=== PATIENT | female | born 1945 | race Caucasian/White ===

== ENCOUNTER 2019-05-25 10:15 | Emergency (ER) | payer MEDICARE ==
--- NOTE | 2019-05-25 10:54 | ERPHSYRPT ---
- History of Present Illness Time Seen by Provider: 05/25/19 10:39 Source: patient Exam Limitations: no limitations Patient Subjective Stated Complaint: Pt was looking at a sign and there was a drop in the sidewalk and she tripped and fell falling on her face, nose is bruised and speckled with little dots of blood, 1 cm laceration between the eyee , abrasions to right elbow, right wrist, right dorsal side of hand, left anterior hand, bruising to right wrist on anterior and posterior side Triage Nursing Assessment: Pt walked into the ER, vitals wnl, pulses normal, states that she feels like something is "catching" in her right chest, denies much pain, skin normal and dry, denies losing consciousness, slight headache Physician History: 74-year-old white female with history of hypercholesterolemia, high blood pressure, sleep apnea, diabetes, osteopenia Patient arrives with complaint of an accidental fall she states she was looking at a sinus rhythm over uneven sidewalk . She states she landed on her face she did not have loss of consciousness she has pain and swelling to her nose she has a small laceration over the glabella he says some abrasions to her wrists and she has some mild ecchymosis as to the right anterior wrist. She states she has a "catch" in her right anterior chest and has some pain with moving and breathing. She has not nausea no vomiting she is not short of breath she denies any pain in her lower extremities she has no abdominal pain. Past medical history includes hypercholesterolemia, high blood pressure, sleep apnea, diabetes type 2, osteopenia Past surgical history includes cholecystectomy hysterectomy and bariatric surgery Timing/Duration: today (at approximately 10:00) Severity: moderate Modifying Factors: Improves With: nothing Associated Symptoms: nausea, vomiting, abdominal pain, chest pain (pain anterior right chest with breathing), other (aabrasions to bilateral forearms ecchymosis right anterior wrist, small superficial laceration right glabella), No shortness of breath, No heartburn, No diaphoresis, No cough, No chills, No fever, No headaches, No loss of appetite, No malaise, No rash, No syncope, No seizure, No weakness Allergies/Adverse Reactions: benazepril Allergy (Mild, Verified 05/25/19 10:33) coughing Home Medications: Calcium Carb/Vit D3/Minerals [Calcium 600 + D Tablet] 5 tab PO DAILY 06/15/12 [ History] Lisinopril 20 mg PO DAILY 06/15/12 [History] Metoprolol Tartrate 50 mg PO BID 06/15/12 [History] Simvastatin 40 mg [Zocor 40 mg] 40 mg PO HS 11/11/14 [History] Biotin [Jourdan Biotin] 10,000 mcg PO DAILY 11/12/14 [History] Cholecalciferol (Vitamin D3) [Vitamin D3] 2,000 unit PO DAILY 11/12/14 [History] Thiamine HCl [Vitamin B-1] 250 mg PO WEEKLY 11/12/14 [History] Aspirin [Aspir-Low] 1 tab PO DAILY 10/16/16 [History] Multivit, Iron, Min #3, FA [Central Prasad Tablet] 2 tab PO DAILY 10/16/16 [ History] Omeprazole 20 mg PO DAILY 05/25/19 [History] Hx Tetanus, Diphtheria Vaccination/Date Given: No Hx Influenza Vaccination/Date Given: Yes (2012) Hx Pneumococcal Vaccination/Date Given: Yes - Review of Systems Constitutional: No Fever, No Chills Eyes: No Symptoms Ears, Nose, & Throat: Nose Pain, Other (fell and hit her nose), No Ear Pain, No Ear Discharge, No Hearing Changes, No Tinnitus, No Nose Congestion, No Nose Discharge, No Sinus Drainage, No Epistaxis, No Mouth Pain, No Mouth Swelling, No Loose Teeth, No Throat Pain, No Throat Swelling, No Hoarse, No Painful Swallowing, No Snoring, No Stridor Respiratory: No Cough, No Dyspnea Cardiac: Chest Pain (pain right anterior chest with moving and breathing), No Edema, No Syncope Abdominal/Gastrointestinal: No Abdominal Pain, No Nausea, No Vomiting, No Diarrhea Genitourinary Symptoms: No Dysuria Musculoskeletal: Other (contusion bilateral wrists. Ecchymosis right anterior wrist) Skin: Other (small 1 cm superficial laceration right glabella) Neurological: No Dizziness, No Focal Weakness, No Headache, No Sensory Changes Psychological: No Symptoms Endocrine: No Symptoms All Other Systems: Reviewed and Negative - Past Medical History Pertinent Past Medical History: Yes Neurological History: No Pertinent History ENT History: No Pertinent History Cardiac History: High Cholesterol, Hypertension Respiratory History: Sleep Apnea Endocrine Medical History: No Pertinent History Musculoskeletal History: No Pertinent History, Osteoporosis GI Medical History: No Pertinent History History: No Pertinent History Psycho-Social History: No Pertinent History Female Reproductive Disorders: No Pertinent History Other Medical History: CPAP AND NIGHT 20 YRSAGO ROTATER CUFF PROBLEMS -TOLD THEN SHE NEEDED SURGERY BUT HASN'T HAD TREATMENT - Past Surgical History Past Surgical History: Yes Neuro Surgical History: No Pertinent History Cardiac: No Pertinent History Respiratory: No Pertinent History Gastrointestinal: Cholecystectomy Genitourinary: No Pertinent History Musculoskeletal: No Pertinent History Female Surgical History: Hysterectomy Other Surgical History: bariatric surgery at [facility] - Social History Smoking Status: Never smoker Exposure to second hand smoke: No Drug Use: none Patient Lives Alone: No - Female History Hx Now: No - Nursing Vital Signs Nursing Vital Signs: Initial Vital Signs Temperature 97.9 F 05/25/19 10:21 Pulse Rate 64 05/25/19 10:21 Blood Pressure 132/116 05/25/19 10:21 O2 Sat by Pulse Oximetry 98 05/25/19 10:21 Pain Scale Pain Intensity 3 - Physical Exam General Appearance: mild distress, alert, other (well-developed well-nourished white female alert oriented x3 small 1 cm superficial laceration overlying glabella) Eye Exam: PERRL/EOMI, eyes nml inspection, other (fundi unremarkable) Ears, Nose, Throat Exam: TMs normal, pharynx normal, moist mucous membranes, other (ecchymosis and edema overlying proximal nose, no septal hematoma), No TM abnormal (R), No TM abnormal (L), No pharyngeal erythema, No tonsillar exudate Neck Exam: normal inspection, non-tender, supple, full range of motion Respiratory Exam: normal breath sounds, chest tenderness (pain right anterior chest with movement and deep breathing), lungs clear, No respiratory distress Cardiovascular Exam: regular rate/rhythm, normal heart sounds, normal peripheral pulses, capillary refill <2 sec Gastrointestinal/Abdomen Exam: soft, normal bowel sounds, No tenderness, No mass Back Exam: normal inspection, normal range of motion, No CVA tenderness, No vertebral tenderness Extremity Exam: normal range of motion, pelvis stable, other (multiple abrasions bilateral wrist/forearms, ecchymosis right anterior forearm, full range of motion all extremities pulses equal and symmetrical upper and lower two over four) Neurologic Exam: alert, oriented x 3, cooperative, production sampler II-XII nml as tested, normal mood/affect, nml cerebellar function, nml station & gait, sensation nml, No motor deficits Skin Exam: other (multiple abrasions left forearm,ecchymosis right forearm, 1 cm superficial laceration overlying glabella) SpO2 Interpretation: normal (98%) SpO2: 98 - Course Nursing assessment & vital signs reviewed: Yes EKG Interpreted by Me: RATE (54 bpm), Sinus Daryn, NORMAL AXIS, Other (EKG: Sinus bradycardia, 54 beats per minute, normal axis, no acute ST or T wave changes, compared to October 27, 2018.) - Radiology Exams Chest X-ray Interpretation: Discussed w/ radiologist (chest x-ray: Impression 1. No acute cardiopulmonary disease is seen. The findings are unchanged from November 11, 2014. The lung carter are mmildly hyperinflated.) C-Spine X-ray Interpretation: Discussed w/ radiologist (x-ray cervical spine: Impression 1. No acute cervical spine fracture, AP subluxation, or prevertebral soft tissue swelling is seen. 2. Advanced multilevel degenerative disc disease and degenerative joint disease are seen at C4-C5, C5- C6, and C6-C7) - CT Exams Maxillofacial Bones CT Interpretation: Discussed w/radiologist (CT maxillofacial bones colon impression 1. A couple of mild fracture deformities within the left aspect of the nasal bones. Which displayed and altered contour on the thin section axial images, particularly on axial image #36 and #37.2. No other evidence of a facial bone fracture or paranasal sinus air-fluid levels are seen. 3. Deviation of the nasal septum towards the right and minimal mucosal thickening at the medial margin of the right maxillary sinus on axial image #34 and within the anterior and mid ethmoid air cells bilaterally) Ordered Tests: Active Orders 24 hr Category Date Time Status [employer] Technician STAT Care 05/25/19 10:47 Active EKG-ER Only STAT Care 05/25/19 10:46 Active IV Insertion STAT Care 05/25/19 10:46 Active Pulse Oximetry (ED) STAT Care 05/25/19 10:46 Active Wound Care STAT Care 05/25/19 10:56 Active CERVICAL SPINE (2 OR 3 VIEW) Stat Exams 05/25/19 10:47 Completed CHEST 2 VIEWS (PA AND LAT) Stat Exams 05/25/19 10:46 Completed FACIAL BONES WO CONTRAST [CT] Stat Exams 05/25/19 10:48 Completed CBC W DIFF Stat Lab 05/25/19 11:01 Completed CMP Stat Lab 05/25/19 11:01 Completed TROPONIN Q3H Lab 05/25/19 11:01 Completed TROPONIN Q3H Lab 05/25/19 14:10 Completed TROPONIN Q3H Lab 05/25/19 17:00 Ordered TROPONIN Q3H Lab 05/25/19 20:00 Ordered TROPONIN Q3H Lab 05/25/19 23:00 Ordered Medication Summary Discontinued Medications Generic Name Dose Route Start Last Admin Trade Name Freq PRN Reason Stop Dose Admin Bacitracin Zinc 0.9 gm 05/25/19 10:56 05/25/19 11:15 Baciguent Packet TP 05/25/19 10:57 0.9 gm STAT ONE Administration Lab/Rad Data: Laboratory Result Diagrams 05/25/19 11:01 05/25/19 11:01 Laboratory Results 05/25/19 05/25/19 05/25/19 Range/Units 14:10 11:01 11:01 WBC (4.0-10.5) K/mm3 RBC (4.1-5.4) M/mm3 Hgb (12.0-16.0) gm/dl Hct (35-47) % MCV (78-100) fl MCH (26-32) pg MCHC (32-36) g/dl RDW (11.5-14.0) % Plt Count (150-450) K/mm3 MPV (6-9.5) fl Gran % (36.0-66.0) % Eos # (Auto) (0-0.5) Absolute Lymphs (auto) (1.0-4.6) Absolute Monos (auto) (0.0-1.3) Lymphocytes % (24.0-44.0) % Monocytes % (0.0-12.0) % Eosinophils % (0.00-5.0) % Basophils % (0.0-0.4) % Absolute Granulocytes (1.4-6.9) Basophils # (0-0.4) Sodium 140 (137-145) mmol/L Potassium 4.5 (3.5-5.1) mmol/L Chloride 109 H (98-107) mmol/L Carbon Dioxide 25 (22-30) mmol/L Anion Gap 10.4 (5-15) MEQ/L BUN 18 H (7-17) mg/dL Creatinine 0.94 (0.52-1.04) mg/dL Estimated GFR > 60.0 ML/MIN Glucose 88 (74-106) mg/dL Calcium 9.1 (8.4-10.2) mg/dL Total Bilirubin 0.50 (0.2-1.3) mg/dL AST 54 H (14-36) U/L ALT 32 (0-35) U/L Alkaline Phosphatase 130 H (38-126) U/L Troponin I < 0.012 < 0.012 (0.000-0.034) ng/mL Serum Total Protein 6.5 (6.3-8.2) g/dL Albumin 3.6 (3.5-5.0) g/dL 05/25/19 Range/Units 11:01 WBC 4.2 (4.0-10.5) K/mm3 RBC 3.61 L (4.1-5.4) M/mm3 Hgb 11.1 L (12.0-16.0) gm/dl Hct 33.9 L (35-47) % MCV 93.9 (78-100) fl MCH 30.7 (26-32) pg MCHC 32.7 (32-36) g/dl RDW 13.1 (11.5-14.0) % Plt Count 174 (150-450) K/mm3 MPV 11.3 H (6-9.5) fl Gran % 59.1 (36.0-66.0) % Eos # (Auto) 0.26 (0-0.5) Absolute Lymphs (auto) 1.06 (1.0-4.6) Absolute Monos (auto) 0.38 (0.0-1.3) Lymphocytes % 25.2 (24.0-44.0) % Monocytes % 9.0 (0.0-12.0) % Eosinophils % 6.2 H (0.00-5.0) % Basophils % 0.5 (0.0-0.4) % Absolute Granulocytes 2.48 (1.4-6.9) Basophils # 0.02 (0-0.4) Sodium (137-145) mmol/L Potassium (3.5-5.1) mmol/L Chloride (98-107) mmol/L Carbon Dioxide (22-30) mmol/L Anion Gap (5-15) MEQ/L BUN (7-17) mg/dL Creatinine (0.52-1.04) mg/dL Estimated GFR ML/MIN Glucose (74-106) mg/dL Calcium (8.4-10.2) mg/dL Total Bilirubin (0.2-1.3) mg/dL AST (14-36) U/L ALT (0-35) U/L Alkaline Phosphatase (38-126) U/L Troponin I (0.000-0.034) ng/mL Serum Total Protein (6.3-8.2) g/dL Albumin (3.5-5.0) g/dL - Progress Progress: improved Progress Note: 05/25/19 13:46 Patient is stable in no acute distress. Waiting for chest x-ray results C-spine results and maxilla facial bone CT results. 05/25/19 15:04 Patient's repeat troponin within normal limits Patient's EKG sinus bradycardia 54 beats per minute normal axis no acute ST or T wave changes are noted patient's Facial bones remarkable for mild fracture deformities within the last aspect of the nasal bones are no other evidence of facial bone fracture or paranasal sinus air fluid level seen there was some deviation of the nasal septum towards the right and minimal mucosal thickening at the medial margin of the right maxillary sinus on image #34 and within the anterior and mid S. voice air cells bilaterally x-ray of the C-spine no acute cervical spine fractures, AP subluxation or prevertebral soft tissue swelling was seen there was advanced multilevel degenerative disc disease and degenerative joint disease seen at C4- C5-C5-C6, and C6-C7 chest x-ray no acute cardiopulmonary disease was seen. Patient's laceration to the bridge of her nose did not require sutures it was cleansed and bacitracin was applied Patient's CBC white blood cell 4.2 hemoglobin 11.1 hematocrit 33.9 platelets 174 Chemistry sodium 140 potassium 4. 5, chloride 109 bicarbonate 25 BUN 18 creatinine 0.94 glucose 88 Patient was feeling well she is stable vitals are stable She refused pain medications and does not want any Will discharge patient patient to followup with Dr. Tracy She does not want to do so until Thursday as she has a in the family. - Departure Departure Disposition: Home Clinical Impression: Superficial laceration nose, Non-cardiac chest pain Accidental fall Qualifiers: Encounter type: initial encounter Qualified Code(s): W19.XXXA - Unspecified fall, initial encounter Facial contusion Qualifiers: Encounter type: initial encounter Qualified Code(s): S00.83XA - Contusion of other part of head, initial encounter Nasal bone fracture Qualifiers: Encounter type: initial encounter Fracture type: closed Qualified Code(s): S02.2XXA - Fracture of nasal bones, initial encounter for closed fracture Contusion of chest Qualifiers: Encounter type: initial encounter Laterality: right Qualified Code(s): S20.211A - Contusion of right front wall of thorax, initial encounter Contusion Qualifiers: Encounter type: initial encounter Contusion area: forearm Laterality: unspecified laterality Qualified Code(s): S50.10XA - Contusion of unspecified forearm, initial encounter Abrasion forearm Qualifiers: Encounter type: initial encounter Laterality: unspecified laterality Qualified Code(s): S50.819A - Abrasion of unspecified forearm, initial encounter Condition: Fair Critical Care Time: No Referrals: CORNELIUS GONG MD [Primary Care Provider] - Additional Instructions: Return home. Cold packs to nose 24-48 hours. Followup with your family doctor or your nose and throat physician call for appointment. Tylenol every 4 hours as needed for pain. Bacitracin to abrasions until healed. Return for acute distress or for severe symptoms.
[2019-05-25] MEDS ORDERED: BACIGUENT PACKET TP ONE (10:56)
[2019-05-25 11:08] LABS: BASOPHIL % 0.5 % (0.0-0.4); Basophil (Absolute #) 0.02 (0-0.4); Eosinophil % 6.2 % (0.00-5.0); Eosinophil (Absolute #) 0.26 (0-0.5); Granulocyte Absolute (ANC) 2.48 (1.4-6.9); Granulocytes % 59.1 % (36.0-66.0); Hematocrit 33.9 % (35-47); Hemoglobin 11.1 gm/dl (12.0-16.0); Lymphocyte (Absolute #) 1.06 (1.0-4.6); Lymphocytes % 25.2 % (24.0-44.0); Mean Cell Volume 93.9 fl (78-100); Mean Corpuscular Hemoglobin 30.7 pg (26-32); Mean Corpuscular Hgb Concent. 32.7 g/dl (32-36); Mean Platelet Volume 11.3 fl (6-9.5); Monocyte (Absolute #) 0.38 (0.0-1.3); Platelet Count 174 K/mm3 (150-450); Red Blood Count 3.61 M/mm3 (4.1-5.4); Red Cell Distribution Width 13.1 % (11.5-14.0); White Blood Count 4.2 K/mm3 (4.0-10.5)
[2019-05-25 11:16] LABS: ALBUMIN 3.6 g/dL (3.5-5.0); ALKALINE PHOSPHATASE 130 U/L (38-126); ANION GAP 10.4 MEQ/L (5-15); BLOOD UREA NITROGEN 18 mg/dL (7-17); CHLORIDE 109 mmol/L (98-107); Calcium 9.1 mg/dL (8.4-10.2); Carbon Dioxide 25 mmol/L (22-30); Creatinine 1 0.94 mg/dL (0.52-1.04); Glucose 88 mg/dL (74-106); Potassium 4.5 mmol/L (3.5-5.1); SGOT/AST 54 U/L (14-36); SGPT/ALT 32 U/L (0-35); SODIUM 140 mmol/L (137-145); Total Protein 6.5 g/dL (6.3-8.2)
--- NOTE | 2019-05-25 13:56 | XRAY ---
Exam: Two-view chest from 05/25/2019. Comparison: AP portable chest film from 11/11/2014. Indication: 74-year-old female, pain with breathing/respiration and movement. Findings: Upright PA and lateral chest films were obtained. The heart size and contour are normal. I see no evidence of mediastinal widening or shift. The joe and mediastinal structures appear unremarkable. There is mild hyperinflation of the lungs. No air space infiltrates, vascular congestion, pneumothorax, or pleural effusion is seen. Moderate vertebral endplate spurring is seen within the mid and lower thoracic spine. Moderate degenerative changes are seen within both shoulder girdles. There is some elevation of each humeral head with respect to the glenoid, left greater than right. This is probably due to chronic rotator cuff disease. I see no compression fracture deformity within the visualized thoracolumbar spine. There is some mild thoracic interspace narrowing within the upper thoracic spine indicating degenerative change. Impression: 1. No acute cardiopulmonary disease is seen. The findings are unchanged from 11/11/2014. The lung carter are mildly hyperinflated.
[2019-05-25 13:58] VITALS: PULSE 54
--- NOTE | 2019-05-25 14:02 | XRAY ---
Exam: 3 view cervical spine series from 05/25/2019. Comparison: None. Indication: 74-year-old female who fell striking face. Findings: AP, lateral, and 2 open-mouth odontoid views were obtained. I see no acute cervical spine fracture, AP subluxation, or prevertebral soft tissue swelling. There is moderate to marked multilevel degenerative disc disease from C4-C5 through C6-C7 manifested by significant vertebral interspace narrowing, moderate anterior vertebral endplate spurring, and mild posterior vertebral endplate spurring. The C2-C3 and C3-C4 interspace heights are fairly well-maintained. Mild hypertrophic degenerative change of the C7-T1 facet joints is seen. The C1-C2 relationship appears unremarkable. No cervical ribs are seen. I note some mild convexity of the upper cervical spine toward the right on the AP image. Moderate osteoarthritic changes are seen affecting the C4-C5, C5-C6, and C6-C7 uncovertebral joints bilaterally. The bones are demineralized. A hearing aid device overlies the right ear. Impression: 1. No acute cervical spine fracture, AP subluxation, or prevertebral soft tissue swelling is seen. 2. Advanced multilevel degenerative disc disease and degenerative joint disease are seen at C4-C5, C5-C6, and C6-C7.
--- NOTE | 2019-05-25 14:19 | XRAY ---
Exam: CT examination of the facial bones without IV contrast from 05/25/2019. CTDI: 59.47 Comparison: None. Indication: 74-year-old female fell striking face. Technique: Non-IV contrast axial images were obtained through the facial bones. Reconstructed coronal and sagittal images were created and reviewed. Findings: There is some deformity of the left aspect of the nasal bones with at least a couple radiolucent defects suggestive of fractures on this side of the nasal bones. I do not see a nasal bone fracture on the right side. There is mild to moderate deviation of the nasal septum toward the right. No other facial bone fracture or paranasal sinus air-fluid level is seen. There is some minimal mucosal thickening noted along the medial margin of the right maxillary sinus on axial image #34. I also see some minimal scattered mucosal thickening within the anterior and mid ethmoid air cells bilaterally. The remainder of the paranasal sinuses appears clear. There is a minimal damián bullosa within the mid left middle nasal turbinate. The infundibula of the ostiomeatal complexes appear open bilaterally on the coronal images. The orbital floors appear intact. The remainder of the orbital contents appears unremarkable. The zygomatic arches appear unremarkable. No gross abnormality of either TMJ is seen. Impression: 1. I believe there are a couple mild fracture deformities within the left aspect of the nasal bones, which display an altered contour on the thin section axial images, particularly on axial image #36 and #37. 2. No other evidence of facial bone fracture or paranasal sinus air-fluid levels are seen. 3. Deviation of nasal septum toward the right and minimal mucosal thickening at the medial margin of the right maxillary sinus on axial image #34 and within the anterior and mid ethmoid air cells bilaterally.
[2019-05-25 14:20] VITALS: O2SAT 98
[2019-05-25 15:21] VITALS: BP 157/69
== END 2019-05-25 15:31 | disposition home or self-care (01) ==
LOC: ED 10:15
DX: S01.21XA Laceration without foreign body of nose, initial encounter (principal); S00.33XA Contusion of nose, initial encounter; W01.198A Fall on same level from slipping, tripping and stumbling with subsequent striking against other object, initial encounter; Y92.480 Sidewalk as the place of occurrence of the external cause; S50.311A Abrasion of right elbow, initial encounter; S60.811A Abrasion of right wrist, initial encounter; S60.511A Abrasion of right hand, initial encounter; R51 Headache; R07.89 Other chest pain; S02.2XXA Fracture of nasal bones, initial encounter for closed fracture; S20.211A Contusion of right front wall of thorax, initial encounter; S50.10XA Contusion of unspecified forearm, initial encounter; S50.819A Abrasion of unspecified forearm, initial encounter; E78.00 Pure hypercholesterolemia, unspecified; G47.30 Sleep apnea, unspecified; M85.80 Other specified disorders of bone density and structure, unspecified site; E11.9 Type 2 diabetes mellitus without complications; I10 Essential (primary) hypertension; Z79.899 Other long term (current) drug therapy
CPT/HCPCS: 36000; 36415; 70486; 71046; 72040; 80053; 84484; 85025; 93005; 93041; 94760; 99284; A9270-GY

== ENCOUNTER 2022-12-06 10:23 | Emergency (ER) | payer MEDICARE ==
[2022-12-06] MEDS ORDERED: NORCO 5/325 MG ONE ×2 (10:38→11:42)
[2022-12-06] MEDS ORDERED: NORCO 5/325 MG PO ONE (10:38)
--- NOTE | 2022-12-06 11:45 | ERPHSYRPT ---
- History of Present Illness Time Seen by Provider: 12/06/22 10:42 Source: patient, family Patient Subjective Stated Complaint: pt here for a fall today, she triped on concrete and fell landing on chest and left knee, no [email or web address].co pain to left knee and chest area Triage Nursing Assessment: pt arrived per pov helped out of car into with assist of one, pt holding on to chest and moaning, pt alert, resp easy, skin w/d/p, edema not lower legs that is normal for her, has abrasion and slight bruising,and abrsion 5th left digit Physician History: 77-year-old female presented in the ER after she tripped while getting into a restaurant leading to fall hitting her anterior chest and left knee. Was able to get up and ambulate. Did not hit her head, no loss of consciousness. No difficulty breathing. Mom denies any back pain. Patient is ambulating in the ER with some discomfort in the left knee. No injury anywhere else. Occurred: just prior to arrival Reason for Fall: tripped Injuries/Pain Location: chest, lower extremity Loss of Consciousness: no loss of consciousness Quality: sharpness Severity of Pain-Max: moderate Severity of Pain-Current: moderate Modifying Factors: Improves With: immobilization. Worsens With: movement Associated Symptoms (Fall): chest pain, extremity injury, No back pain, No confusion, No headache, No shortness of breath, No slurred speech, No trouble walking, No vision changes Allergies/Adverse Reactions: benazepril Allergy (Mild, Verified 12/06/22 10:28) coughing Home Medications: Calcium Carb/Vit D3/Minerals [Calcium 600 + D Tablet] 5 tab PO DAILY 06/15/12 [History] Lisinopril 20 mg PO DAILY 06/15/12 [History] Metoprolol Tartrate 50 mg PO BID 06/15/12 [History] Simvastatin 40 mg [Zocor 40 mg] 40 mg PO HS 11/11/14 [History] Biotin [Jourdan Biotin] 5,000 mcg PO DAILY 11/12/14 [History] Cholecalciferol (Vitamin D3) [Vitamin D3] 2,000 unit PO DAILY 11/12/14 [History] Thiamine HCl [Vitamin B-1] 250 mg PO WEEKLY 11/12/14 [History] Multivit, Iron, Min #3, FA [Central Prasad Tablet] 2 tab PO DAILY 10/16/16 [History] Omeprazole 20 mg PO DAILY 05/25/19 [History] Hx Tetanus, Diphtheria Vaccination/Date Given: No Hx Influenza Vaccination/Date Given: Yes Hx Pneumococcal Vaccination/Date Given: Yes Immunizations Up to Date: No Travel Risk - International Travel Have you traveled outside of the country in past 3 weeks: No - Coronavirus Screening Are you exhibiting any of the following symptoms?: No Close contact with a COVID-19 positive Pt in past 14-21 Days: No - Vaccine Status Have you recieved a Covid-19 vaccination: Yes Superintendent Pressure: Unknown - Vaccination Dates Date of 2cond Vaccination (if applicable): 2020 Dates if Unknown: ? - Review of Systems Constitutional: No Symptoms Eyes: No Symptoms Ears, Nose, & Throat: No Symptoms Respiratory: No Symptoms Cardiac: Chest Pain Abdominal/Gastrointestinal: No Symptoms Genitourinary Symptoms: No Symptoms Musculoskeletal: Injury Neurological: No Symptoms Psychological: No Symptoms Endocrine: No Symptoms Hematologic/Lymphatic: No Symptoms - Past Medical History Pertinent Past Medical History: Yes Neurological History: No Pertinent History ENT History: No Pertinent History Cardiac History: Hypertension Respiratory History: No Pertinent History Endocrine Medical History: No Pertinent History Musculoskeletal History: No Pertinent History GI Medical History: No Pertinent History History: No Pertinent History Psycho-Social History: No Pertinent History Female Reproductive Disorders: No Pertinent History Other Medical History: COLON CANCER, DID NOT REQUIRE A COLOSTOMY. SHE IS IN REMISSION. GASTRIC BYPASS. - Past Surgical History Past Surgical History: Yes Neuro Surgical History: No Pertinent History Cardiac: No Pertinent History Respiratory: No Pertinent History Gastrointestinal: Cholecystectomy Genitourinary: No Pertinent History Musculoskeletal: No Pertinent History Female Surgical History: Hysterectomy Other Surgical History: bariatric surgery at [facility] - Social History Smoking Status: Never smoker Exposure to second hand smoke: No Drug Use: none Patient Lives Alone: No - Nursing Vital Signs Nursing Vital Signs: Initial Vital Signs Temperature 97.6 F 12/06/22 10:29 Pulse Rate 58 L 12/06/22 10:29 Respiratory Rate 22 12/06/22 10:29 Blood Pressure 175/83 12/06/22 10:29 O2 Sat by Pulse Oximetry 97 12/06/22 10:29 Pain Scale Pain Intensity 10 - [place] Score Best Eye Response ([place]): (4) open spontaneously Best Verbal Response ([place]): (5) oriented Best Motor Response ([place]): (6) obeys commands [place] Total: 15 - Physical Exam General Appearance: no apparent distress, alert Head Injury: no evidence of injury Eye Exam: PERRL/EOMI, eyes nml inspection ENT Exam: airway nml, No evidence of ENT injury, No dental injury Neck Exam: supple, trachea midline, full range of motion, normal alignment, normal inspection Respiratory/Chest Exam: chest tenderness (Mild anterior left chest tenderness. No crepitus.), normal breath sounds, No respiratory distress Cardiovascular Exam: normal heart sounds, edema, bradycardia Gastrointestinal Exam: soft, normal bowel sounds, No tenderness Back Exam: normal inspection, normal range of motion, No CVA tenderness Extremity Exam: normal inspection, normal range of motion, capillary refill <3 sec, pain with movement (Left knee), tenderness (Mild tenderness left knee. No crepitus. No effusion. Intact range of motion.) Neurologic Exam: alert, oriented x 3, cooperative, solution design and analysis manager II-XII nml as tested, normal mood/affect, nml cerebellar function, nml station & gait, sensation nml, No motor deficits Skin Exam: normal color SpO2 Interpretation: normal SpO2: 97 O2 Delivery: Room Air Ordered Tests: Active Orders 24 hr Category Date Time Status Kevin Bandage Application -[facility] STAT Care 12/06/22 11:53 Completed CHEST 2 VIEWS (PA AND LAT) Stat Exams 12/06/22 10:39 Taken KNEE (3 VIEWS) Stat Exams 12/06/22 10:39 Taken Medication Summary Discontinued Medications Generic Name Dose Route Start Last Admin Trade Name Carrington PRN Reason Stop Dose Admin Hydrocodone Bitart/Acetaminophen Confirm 12/06/22 10:38 Hydrocodone/Apap 5/325 1 Tab Tablet Administered 12/06/22 10:39 Dose 1 tab .ROUTE .STK-MED ONE Hydrocodone Bitart/Acetaminophen 1 tab 12/06/22 10:38 12/06/22 11:43 Hydrocodone/Apap 5/325 1 Tab Tablet PO 12/06/22 10:39 1 tab STAT ONE Administration Hydrocodone Bitart/Acetaminophen Confirm 12/06/22 11:42 Hydrocodone/Apap 5/325 1 Tab Tablet Administered 12/06/22 11:43 Dose 1 tab .ROUTE .STK-MED ONE - Progress Progress: improved, pain not gone completely, re-examined Progress Note: 12/06/22 11:42 77-year-old is evaluated in the ER for mechanical fall. Patient was getting into a restaurant, tripped, hit her chest and left knee with normal head injury, loss of consciousness. Denies any palpitation, dizziness, shortness of breath before or after the fall. Patient does complain of some chest wall discomfort and some knee pain although patient is ambulating fine. Lungs bilateral clear to auscultation. She has minimal tenderness anterior chest wall with no crepitus. No obvious bruising noticed. EKG showed sinus bradycardia with no acute ischemic changes. She is given [place] for symptomatic relief. X-rays chest and knees reviewed by me negative for any acute trauma related findings, official reports are pending. Recommended deep breathing exercises, pain medic ations, Kevin wrap left knee and outpatient follow-up. Discussed signs symptoms of worsening needing return to ER which patient/son seem understanding. Counseled pt/family regarding: diagnosis, need for follow-up, rad results - Departure Departure Disposition: Home Clinical Impression: Chest wall contusion, Accidental fall, Contusion, knee Condition: Stable Critical Care Time: No Referrals: ADORE LUCERO MD [Primary Care Provider] - Follow up/PCP as directed (In 2 days for reevaluation) Instructions: Contusion (DC), Preventing Falls in Older Adults Additional Instructions: Take pain medications only as needed. Intermittent ice application. Keep leg elevated. Use compression stocking. Use cane/walker for ambulation to avoid another fall while being on pain medications. Follow-up with orthopedics/primary care for reevaluation early next week. Return to ER for worsening chest pain, difficulty breathing, swelling around knee/ambulation difficulty etc. Prescriptions: Hydrocodone/Acetaminophen [Hydrocodone-Acetamin 5-325 mg] 1 tab PO Q6HPRN PRN 3 Days #12 tablet MDD 4 PRN Reason: Pain
[2022-12-06 11:49] VITALS: BP 119/70; PULSE 70
[2022-12-06 12:09] VITALS: O2SAT 97
--- NOTE | 2022-12-06 19:36 | XRAY ---
Indication: Pain following fall. Comparison: None 3 view left knee demonstrates osteopenia, mild/moderate tricompartmental degenerative changes greatest medial compartment, and tiny spurring tibial tuberosity. No other bony, articular, or soft tissue abnormalities.
--- NOTE | 2022-12-06 19:36 | XRAY ---
Indication: Chest pain. Comparison: May 25, 2019 PA/lateral chest remains hyperinflated and clear. Heart not enlarged again with tiny bilateral hilar calcified nodes. Bony thorax intact again with osteopenia and moderate degenerative changes. Impression: Continued nonacute hyperinflated chest with chronic features.
== END 2022-12-06 11:59 | disposition home or self-care (01) ==
LOC: ED 10:23
DX: S80.02XA Contusion of left knee, initial encounter (principal); S20.214A Contusion of middle front wall of thorax, initial encounter; W01.10XA Fall on same level from slipping, tripping and stumbling with subsequent striking against unspecified object, initial encounter; Y92.511 Restaurant or cafe as the place of occurrence of the external cause; I10 Essential (primary) hypertension; Z79.891 Long term (current) use of opiate analgesic; Z79.899 Other long term (current) drug therapy
CPT/HCPCS: 71046; 73562; 99283; A9270-GY

== ENCOUNTER 2022-12-13 18:36 | Emergency (ER) | payer MEDICARE ==
--- NOTE | 2022-12-13 19:45 | ERPHSYRPT ---
- History of Present Illness Time Seen by Provider: 12/13/22 19:38 Source: patient, family Exam Limitations: no limitations Physician History: pt reports being seen out here this week for fall onto left knee and chest and now has pain with breathing but no SOBreath at rest and chest is tender anterior. Pain with swelling below left knee and tender anterior tibia. sensation intact distally. Prior ER record here reviewed. INdependently confirmed Hx with family member present. Timing/Duration: day(s) Severity: moderate Modifying Factors: Improves With: movement Associated Symptoms: denies symptoms Allergies/Adverse Reactions: benazepril Allergy (Mild, Verified 12/13/22 19:46) coughing Home Medications: Calcium Carb/Vit D3/Minerals [Calcium 600 + D Tablet] 5 tab PO DAILY 06/15/12 [History] Lisinopril 20 mg PO DAILY 06/15/12 [History] Metoprolol Tartrate 50 mg PO BID 06/15/12 [History] Simvastatin 40 mg [Zocor 40 mg] 40 mg PO HS 11/11/14 [History] Biotin [Jourdan Biotin] 5,000 mcg PO DAILY 11/12/14 [History] Cholecalciferol (Vitamin D3) [Vitamin D3] 2,000 unit PO DAILY 11/12/14 [History] Thiamine HCl [Vitamin B-1] 250 mg PO WEEKLY 11/12/14 [History] Multivit, Iron, Min #3, FA [Central Prasad Tablet] 2 tab PO DAILY 10/16/16 [History] Omeprazole 20 mg PO DAILY 05/25/19 [History] Hx Tetanus, Diphtheria Vaccination/Date Given: No Hx Influenza Vaccination/Date Given: Yes Hx Pneumococcal Vaccination/Date Given: Yes Travel Risk - Vaccine Status Have you recieved a Covid-19 vaccination: Yes Roll Contour Grinder: Unknown - Vaccination Dates Date of 2cond Vaccination (if applicable): 2020 Dates if Unknown: ? - Review of Systems Constitutional: No Fever, No Chills Eyes: No Symptoms Ears, Nose, & Throat: No Symptoms Respiratory: No Cough, No Dyspnea Cardiac: Other (tender anterior chest), No Chest Pain, No Edema, No Syncope Abdominal/Gastrointestinal: No Abdominal Pain, No Nausea, No Vomiting, No Diarrhea Genitourinary Symptoms: No Dysuria Musculoskeletal: Fall, Injury, Other (left leg swelling and tenderness), No Back Pain, No Neck Pain Skin: No Rash Neurological: No Dizziness, No Focal Weakness, No Sensory Changes Psychological: No Symptoms Endocrine: No Symptoms Hematologic/Lymphatic: No Symptoms Immunological/Allergic: No Symptoms All Other Systems: Reviewed and Negative - Past Medical History Pertinent Past Medical History: Yes Neurological History: No Pertinent History ENT History: No Pertinent History Cardiac History: Hypertension Respiratory History: No Pertinent History Endocrine Medical History: No Pertinent History Musculoskeletal History: No Pertinent History GI Medical History: No Pertinent History History: No Pertinent History Psycho-Social History: No Pertinent History Female Reproductive Disorders: No Pertinent History Other Medical History: COLON CANCER, DID NOT REQUIRE A COLOSTOMY. SHE IS IN REMISSION. GASTRIC BYPASS. - Past Surgical History Past Surgical History: Yes Neuro Surgical History: No Pertinent History Cardiac: No Pertinent History Respiratory: No Pertinent History Gastrointestinal: Cholecystectomy Genitourinary: No Pertinent History Musculoskeletal: No Pertinent History Female Surgical History: Hysterectomy Other Surgical History: bariatric surgery at [facility] - Social History Smoking Status: Never smoker Exposure to second hand smoke: No Drug Use: none Patient Lives Alone: No - Nursing Vital Signs Nursing Vital Signs: Initial Vital Signs Temperature 97.7 F 12/13/22 19:34 Pulse Rate 59 L 12/13/22 19:34 Respiratory Rate 20 12/13/22 19:34 Blood Pressure 142/93 12/13/22 19:34 O2 Sat by Pulse Oximetry 98 12/13/22 19:34 Pain Scale Pain Intensity 4 - Physical Exam General Appearance: no apparent distress, alert Eye Exam: PERRL/EOMI, eyes nml inspection Ears, Nose, Throat Exam: normal ENT inspection, TMs normal, pharynx normal, moist mucous membranes Neck Exam: normal inspection, non-tender, supple, full range of motion Respiratory Exam: normal breath sounds, chest tenderness, lungs clear, No respiratory distress Cardiovascular Exam: regular rate/rhythm, normal heart sounds, normal peripheral pulses Gastrointestinal/Abdomen Exam: soft, normal bowel sounds, No tenderness, No mass Pelvic Exam: deferred Rectal Exam: deferred Back Exam: normal inspection, normal range of motion, No CVA tenderness, No vertebral tenderness Extremity Exam: normal inspection, normal range of motion, pelvis stable, swelling, tenderness (left lower leg) Neurologic Exam: alert, oriented x 3, cooperative, normal mood/affect, nml cerebellar function, nml station & gait, sensation nml, No motor deficits Skin Exam: normal color, warm, dry, No rash Lymphatic Exam: No adenopathy SpO2 Interpretation: normal SpO2: 97 O2 Delivery: Room Air - Course Nursing assessment & vital signs reviewed: Yes EKG Interpreted by Me: Sinus Rhythm, NORMAL AXIS, 1st degree AV Block, Non- specific ST Changes - CT Exams Left Lower Extremity CT Interpretation: Tele-radiologist Report, No Fracture, Other (SQ swelling) Chest CT Interpretation: Tele-radiologist Report, No Fracture, Other (liver foci ; DJD shoulders) - Radiology Ultrasound Exam Left Arterial Lower Extremity Ultrasound: negative, Other (normal flow) Left Venous Lower Extremity Ultrasound: negative, Other (no DVT. ) Ordered Tests: Active Orders 24 hr Category Date Time Status EKG-ER Only STAT Care 12/13/22 19:49 Active IV Insertion STAT Care 12/13/22 19:49 Active ARTERIAL UNILAT/LTD LOWER EXT [US] Stat Exams 12/13/22 19:43 Taken CHEST WITH CONTRAST [CT] Stat Exams 12/13/22 19:38 Taken LOWER EXTREMITY WO CONTRAST [CT] Stat Exams 12/13/22 19:40 Taken VENOUS UNILAT/LIMITED EXTREMIT [US] Stat Exams 12/13/22 19:42 Taken CBC W DIFF Stat Lab 12/13/22 20:00 Completed CMP Stat Lab 12/13/22 20:00 Completed TROPONIN Q4H Lab 12/13/22 20:00 Completed TROPONIN Q4H Lab 12/14/22 00:00 Ordered TROPONIN Q4H Lab 12/14/22 04:00 Ordered UA W/RFX UR CULTURE Stat Lab 12/13/22 23:13 Completed Medication Summary Generic Name Dose Route Start Last Admin Trade Name Freq PRN Reason Stop Dose Admin Sodium Chloride 1,000 mls @ 100 mls/hr 12/13/22 20:00 12/13/22 20:07 Sodium Chloride 0.9% 1000 Ml IV 01/12/23 19:59 100 mls/hr .Q10H ELY Administration Discontinued Medications Generic Name Dose Route Start Last Admin Trade Name Freq PRN Reason Stop Dose Admin Diphenhydramine HCl 12.5 mg 12/13/22 19:49 12/13/22 20:07 Diphenhydramine Hcl 50 Mg/Ml Vial IV 12/13/22 19:50 12.5 mg STAT ONE Administration Diphenhydramine HCl Confirm 12/13/22 20:05 Diphenhydramine Hcl 50 Mg/Ml Vial Administered 12/13/22 20:06 Dose 50 mg .ROUTE .STK-MED ONE Morphine Sulfate 4 mg 12/13/22 19:49 12/13/22 20:07 Morphine Sulfate 4 Mg/Ml Injection IV 12/13/22 19:50 4 mg STAT ONE Administration Morphine Sulfate Confirm 12/13/22 20:05 Morphine Sulfate 4 Mg/Ml Injection Administered 12/13/22 20:06 Dose 4 mg .ROUTE .STK-MED ONE Ondansetron HCl 4 mg 12/13/22 19:49 12/13/22 20:07 Ondansetron Hcl 4 Mg/2 Ml Vial IV 12/13/22 19:50 4 mg STAT ONE Administration Ondansetron HCl Confirm 12/13/22 20:05 Ondansetron Hcl 4 Mg/2 Ml Vial Administered 12/13/22 20:06 Dose 4 mg .ROUTE .STK-MED ONE Lab/Rad Data: Laboratory Result Diagrams 12/13/22 20:00 12/13/22 20:00 Laboratory Results 12/13/22 12/13/22 12/13/22 Range/Units 23:13 20:00 20:00 WBC (4.0-10.5) x10^3/uL RBC (4.1-5.4) x10^6/uL Hgb (12.0-16.0) g/dL Hct (35-47) % MCV (78-100) fL MCH (26-32) pg MCHC (32-36) g/dL RDW (11.5-14.0) % Plt Count (150-450) x10^3/uL MPV (7.5-11.0) fL Gran % (36.0-66.0) % Immature Gran % (Auto) (0.00-0.4) % Nucleat RBC Rel Count (0.00-0.1) % Eos # (Auto) (0-0.5) x10^3/uL Immature Gran # (Auto) (0.00-0.03) x10^3u/L Absolute Lymphs (auto) (1.0-4.6) x10^3/uL Absolute Monos (auto) (0.0-1.3) x10^3/uL Absolute Nucleated RBC (0.00-0.01) x10^3u/L Lymphocytes % (24.0-44.0) % Monocytes % (0.0-12.0) % Eosinophils % (0.00-5.0) % Basophils % (0.0-0.4) % Absolute Granulocytes (1.4-6.9) x10^3/uL Basophils # (0-0.4) x10^3/uL Sodium 139 (137-145) mmol/L Potassium 3.2 L (3.5-5.1) mmol/L Chloride 111 H (98-107) mmol/L Carbon Dioxide 23 (22-30) mmol/L Anion Gap 8.7 (5-15) MEQ/L BUN 22 H (7-17) mg/dL Creatinine 0.69 (0.52-1.04) mg/dL Estimated GFR > 60.0 ML/MIN Glucose 125 H (74-106) mg/dL Calcium 7.8 L (8.4-10.2) mg/dL Total Bilirubin 0.50 (0.2-1.3) mg/dL AST 58 H (14-36) U/L ALT 36 H (0-35) U/L Alkaline Phosphatase 178 H (38-126) U/L Troponin I < 0.012 (0.000-0.034) ng/mL Serum Total Protein 5.9 L (6.3-8.2) g/dL Albumin 3.2 L (3.5-5.0) g/dL Urine Color Yellow (Yellow) Urine Appearance Clear (Clear) Urine pH 6.0 (4.6-8.0) Ur Specific [place] >=1.030 A (1.005-1.030) Urine Protein Negative (Negative) Urine Glucose (UA) Negative (Negative) mg/dL Urine Ketones Negative (Negative) Urine Blood Negative (Negative) Urine Nitrite Negative (Negative) Urine Bilirubin Negative (Negative) Urine Urobilinogen 0.2 (0.2) mg/dL Ur Leukocyte Esterase Trace A (Negative) U Hyaline Cast (Auto) NONE SEEN (0-2) /LPF Urine Microscopic RBC 0-2 (0-5) /HPF Urine Microscopic WBC 0-2 (0-5) /HPF Ur Epithelial Cells None Seen (None Seen) /HPF Urine Bacteria None Seen (None Seen) /HPF Urine Culture Reflexed NO (NO) 12/13/22 Range/Units 20:00 WBC 5.0 (4.0-10.5) x10^3/uL RBC 3.29 L (4.1-5.4) x10^6/uL Hgb 10.2 L (12.0-16.0) g/dL Hct 31.4 L (35-47) % MCV 95.4 (78-100) fL MCH 31.0 (26-32) pg MCHC 32.5 (32-36) g/dL RDW 11.8 (11.5-14.0) % Plt Count 216 (150-450) x10^3/uL MPV 9.5 (7.5-11.0) fL Gran % 72.5 H (36.0-66.0) % Immature Gran % (Auto) 0.2 (0.00-0.4) % Nucleat RBC Rel Count 0.0 (0.00-0.1) % Eos # (Auto) 0.12 (0-0.5) x10^3/uL Immature Gran # (Auto) 0.01 (0.00-0.03) x10^3u/L Absolute Lymphs (auto) 0.76 L (1.0-4.6) x10^3/uL Absolute Monos (auto) 0.46 (0.0-1.3) x10^3/uL Absolute Nucleated RBC 0.00 (0.00-0.01) x10^3u/L Lymphocytes % 15.1 L (24.0-44.0) % Monocytes % 9.2 (0.0-12.0) % Eosinophils % 2.4 (0.00-5.0) % Basophils % 0.6 (0.0-0.4) % Absolute Granulocytes 3.64 (1.4-6.9) x10^3/uL Basophils # 0.03 (0-0.4) x10^3/uL Sodium (137-145) mmol/L Potassium (3.5-5.1) mmol/L Chloride (98-107) mmol/L Carbon Dioxide (22-30) mmol/L Anion Gap (5-15) MEQ/L BUN (7-17) mg/dL Creatinine (0.52-1.04) mg/dL Estimated GFR ML/MIN Glucose (74-106) mg/dL Calcium (8.4-10.2) mg/dL Total Bilirubin (0.2-1.3) mg/dL AST (14-36) U/L ALT (0-35) U/L Alkaline Phosphatase (38-126) U/L Troponin I (0.000-0.034) ng/mL Serum Total Protein (6.3-8.2) g/dL Albumin (3.5-5.0) g/dL Urine Color (Yellow) Urine Appearance (Clear) Urine pH (4.6-8.0) Ur Specific [place] (1.005-1.030) Urine Protein (Negative) Urine Glucose (UA) (Negative) mg/dL Urine Ketones (Negative) Urine Blood (Negative) Urine Nitrite (Negative) Urine Bilirubin (Negative) Urine Urobilinogen (0.2) mg/dL Ur Leukocyte Esterase (Negative) U Hyaline Cast (Auto) (0-2) /LPF Urine Microscopic RBC (0-5) /HPF Urine Microscopic WBC (0-5) /HPF Ur Epithelial Cells (None Seen) /HPF Urine Bacteria (None Seen) /HPF Urine Culture Reflexed (NO) - Progress Progress: improved, re-examined Progress Note: 12/14/22 00:32 discussed results with pt and son and that monitoring of the left leg for increased pain for risk of compartment syndrome is important and they understand and will also f/u with PMD this week. They are advised that there are liver lesions and elevated enzymes to also f/u with PMD. Counseled pt/family regarding: lab results, diagnosis, need for follow-up, rad results - Departure Departure Disposition: Home Clinical Impression: Liver nodule, Swelling of lower extremity, DJD of both shoulders, popliteal cyst left lower leg Clinical Impression: (Ruled Out): popliteal cyst right lower leg Condition: Good Critical Care Time: No Referrals: ADORE LUCERO MD [Primary Care Provider] - Follow up/PCP as directed Instructions: Calzada's Cyst (DC), Liver Function Test Additional Instructions: followup with your DrArlene for further workup of the liver lesions and elevated liver tests, and to recheck your potassium which was low. See your DrArlene for your swollen leg and cyst - return meantime if any concerns, increasing pain or numbness which could be compartment syndrome. This could happen in the future even with the negative tests we have tonight. Keep leg elevated as you have been.
[2022-12-13] MEDS ORDERED: MORPHINE SULFATE 4 MG INJ IV ONE (19:49)
[2022-12-13] MEDS ORDERED: Zofran 4 MG/2 ML VIAL IV ONE (19:49)
[2022-12-13] MEDS ORDERED: BENADRYL 50 MG/ML IV ONE (19:49)
[2022-12-13] MEDS ORDERED: Sodium Chloride 0.9% 1000 ML 1,000 ML IV SCH (20:00)
[2022-12-13] MEDS ORDERED: BENADRYL 50 MG/ML ONE (20:05)
[2022-12-13] MEDS ORDERED: Zofran 4 MG/2 ML VIAL ONE (20:05)
[2022-12-13] MEDS ORDERED: Sodium Chloride 0.9% 1000 ML 1,000 ML ONE (20:05)
[2022-12-13] MEDS ORDERED: MORPHINE SULFATE 4 MG INJ ONE (20:05)
[2022-12-13 20:09] LABS: Absolute Neutrophil Ct (ANC) 3.64 x10^3/uL (1.4-6.9); BASOPHIL % 0.6 % (0.0-0.4); Basophil (Absolute #) 0.03 x10^3/uL (0-0.4); Eosinophil % 2.4 % (0.00-5.0); Eosinophil (Absolute #) 0.12 x10^3/uL (0-0.5); Hematocrit 31.4 % (35-47); Hemoglobin 10.2 g/dL (12.0-16.0); IMMATURE GRAN # 0.01 x10^3u/L (0.00-0.03); IMMATURE GRAN % 0.2 % (0.00-0.4); Lymphocyte (Absolute #) 0.76 x10^3/uL (1.0-4.6); Lymphocytes % 15.1 % (24.0-44.0); Mean Cell Volume 95.4 fL (78-100); Mean Corpuscular Hgb Concent. 32.5 g/dL (32-36); Mean Platelet Volume 9.5 fL (7.5-11.0); Monocyte (Absolute #) 0.46 x10^3/uL (0.0-1.3); Monocytes % 9.2 % (0.0-12.0); Neutrophil % 72.5 % (36.0-66.0); Platelet Count 216 x10^3/uL (150-450); Red Blood Count 3.29 x10^6/uL (4.1-5.4); Red Cell Distribution Width 11.8 % (11.5-14.0)
[2022-12-13 20:43] LABS: ALBUMIN 3.2 g/dL (3.5-5.0); ALKALINE PHOSPHATASE 178 U/L (38-126); ANION GAP 8.7 MEQ/L (5-15); BLOOD UREA NITROGEN 22 mg/dL (7-17); CHLORIDE 111 mmol/L (98-107); Calcium 7.8 mg/dL (8.4-10.2); Carbon Dioxide 23 mmol/L (22-30); Creatinine 1 0.69 mg/dL (0.52-1.04); EST GLOMERULAR FILTRATION RATE > 60.0 ML/MIN; Glucose 125 mg/dL (74-106); Potassium 3.2 mmol/L (3.5-5.1); SGOT/AST 58 U/L (14-36); SGPT/ALT 36 U/L (0-35); SODIUM 139 mmol/L (137-145); Total Protein 5.9 g/dL (6.3-8.2)
[2022-12-13 23:22] LABS: Appearance Clear (Clear); Bacteria None Seen /HPF (None Seen); Bilirubin Negative (Negative); Blood Negative (Negative); Epithelial Cells None Seen /HPF (None Seen); Glucose, Urine Negative (Negative); Hyaline Casts NONE SEEN /LPF (0-2); Ketones Negative (Negative); Leukocyte Esterase Trace (Negative); Nitrite Negative (Negative); Protein,Urine Dip Negative (Negative); RBC 0-2 /HPF (0-5); Specific Gravity >=1.030 (1.005-1.030); Urobilinogen 0.2 mg/dL (0.2); WBC 0-2 /HPF (0-5)
[2022-12-13 23:23] LABS: ADD URINE CULTURE? NO (NO)
[2022-12-14] MEDS ORDERED: K-LYTE PO ONE (00:36)
[2022-12-14] MEDS ORDERED: K-LYTE ONE (00:42)
[2022-12-14 00:48] VITALS: BP 151/59; PULSE 82; O2SAT 98
--- NOTE | 2022-12-14 08:58 | XRAY ---
Indication: Pain following fall December 06, 2022. Multiple contiguous axial images obtained through the left lower leg without contrast.. Comparison: June 12, 2016 Osseous structures demineralized consistent with patient's age. Knee joint demonstrates mild/moderate tricompartmental degenerative changes greatest medial compartment with small nonspecific effusion. Posterior knee demonstrates small Calzada's cyst interposed between semimembranosus tendon and lateral head gastrocnemius measuring at least 2.5 x 2.3 cm in greatest axial dimension. Ankle joint demonstrates mild degenerative changes. Small posterior heel spur. No acute fracture, dislocation, or suspicious bony lesions. Visualized noncontrasted soft tissues demonstrates diffuse cutaneous/subcutaneous soft tissue swelling/edema, mild diffuse scattered vascular calcifications, and moderate medial subcutaneous venous varicosities. Impression: 1. Diffuse cutaneous/subcutaneous soft tissue swelling/edema. 2. Nonspecific knee effusion. Negative acute fracture/dislocation. 2. Chronic findings including knee/ankle degenerative arthropathy, heel spur, Calzada's cyst, venous varicosities, and arteriosclerotic disease. Comment: Preliminary interpretation made by [facility]. No critical discrepancy.
--- NOTE | 2022-12-14 09:02 | XRAY ---
Indication: Right chest pain following fall December 06, 2022. Multiple contiguous axial images obtained through the chest using 80 cc Isovue 370 contrast. Comparison: November 11, 2014 Lungs demonstrates mild bilateral dependent atelectasis. No suspicious pulmonary mass/nodule, infiltrate, effusion, or pneumothorax. Heart not enlarged. Aorta mildly arteriosclerotic without aneurysm/dissection. No pathologic mediastinal/hilar lymphadenopathy. Bony thorax intact with osteopenia and moderate degenerative changes throughout the spine and both shoulders. Limited upper abdomen again demonstrates gastric bypass surgery. Liver again demonstrates diffuse fatty attenuation with grossly stable subtle indeterminant peripheral enhancement. Impression: 1. Again fatty liver with grossly stable indeterminant peripheral enhancement. 2. Chronic findings including arteriosclerotic disease, chronic bony findings, and gastric bypass surgery. 3. Remaining CT chest with contrast exam is negative. Comment: Preliminary interpretation made by [facility]. No critical discrepancy.
--- NOTE | 2022-12-15 15:40 | XRAY ---
Indication: Left leg pain and swelling. Two-dimensional sonogram and color Doppler imaging of the major venous vessels of the left leg performed. Comparison: None Images are mislabeled. Examination is of the left leg. No thrombus seen in the examined deep venous vessels of the left leg including greater saphenous vein. Veins demonstrate normal compressibility. Venous waveforms are normal with and without augmentation. Impression: Left leg negative for DVT. Comment: Preliminary report was given.
--- NOTE | 2022-12-15 15:41 | XRAY ---
Indication: Left leg pain and swelling. Two-dimensional sonogram and color Doppler imaging of the major arteries of the left leg performed. Comparison: None Images are mislabeled. Examination is of the left leg. Visualized common femoral, deep femoral, superficial femoral, and popliteal arteries are widely patent. Mild arteriosclerotic disease scattered in the posterior tibial and lesser degree dorsal pedal arteries without critical stenosis/obstruction. Arterial waveforms are multiphasic throughout the left leg. Left brachial pressure is 128. Left ankle pressure is 153. Ankle brachial index is 1.19, normal. Impression: 1. 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 2. Remaining left leg arterial sonogram is negative for critical stenosis/obstruction. 3. SOUTH 1.19 is normal. Comment: Preliminary report was given.
== END 2022-12-14 00:55 | disposition home or self-care (01) ==
LOC: ED 18:36
DX: K76.89 Other specified diseases of liver (principal); R60.0 Localized edema; M19.012 Primary osteoarthritis, left shoulder; M19.011 Primary osteoarthritis, right shoulder; M71.22 Synovial cyst of popliteal space [Baker], left knee; R07.1 Chest pain on breathing; I10 Essential (primary) hypertension; Z79.899 Other long term (current) drug therapy
CPT/HCPCS: 36000; 36415; 71260; 73700; 80053; 81001; 84484; 85025; 93005; 93926; 93971; 96374; 99284; J1200; J2270; J2405; A9270-GY